=== PATIENT | female | born 1965 | race Caucasian/White ===

== ENCOUNTER 2018-03-11 13:41 | Day surgery (SDC) | payer OTHER ==
[~2018-03-11 13:41] MED LIST: CEFAZOLIN 1 GM INJ; DEXAMETHASONE 4 MG/ML 1 ML INJ; FENTAnyl 50 MCG/ML VIAL; LIDOCAINE 2% (SDV) 5 ML INJ; METOCLOPRAMIDE 10 MG INJ; MIDAZOLAM 1 MG/ML 2 ML INJ; ONDANSETRON 4 MG INJ; PROPOFOL 20 ML; ROPIVACAINE 0.5 % 30 ML VIAL
[2018-03-11] MEDS ORDERED: LIDOCAINE 1% (MPF) 30 ML INJ (14:23)
[2018-03-11] MEDS ORDERED: BUPIVACAINE 0.5% (SDV) 30 ML INJ (14:23)
[2018-03-11] MEDS ORDERED: HYDROCODONE/APAP (5/325) TAB PO (18:17)
[2018-03-11] MEDS ORDERED: morphine (1 MG/ML) 10ML SYRINGE IV (18:36)
== END 2018-03-11 18:58 | disposition home or self-care (01) ==
LOC: SDS 13:41
DX: M18.12 Unilateral primary osteoarthritis of first carpometacarpal joint, left hand (principal); G56.02 Carpal tunnel syndrome, left upper limb
CPT/HCPCS: 25447; 84703